=== PATIENT | male | born 1990 | race Caucasian/White ===

== ENCOUNTER 2025-06-14 10:05 | Emergency (ER) | payer OTHER, SELFPAY ==
[2025-06-14 10:06] VITALS: BP 164/94; PULSE 69; RESP 18; TEMP 36.5; O2SAT 97; BMI 22.5
--- NOTE | 2025-06-14 11:05 | RAD_ITS ---
PROCEDURE: CERV SPINE 2 OR 3 VIEWS 06/14/2025 REASON FOR EXAM: INJURY/PAIN TECHNIQUE: Procedure Code: RADSPCL Modality: DX Procedure: CERV SPINE 2 OR 3 VIEWS COMPARISON: None FINDINGS: Vertebrae: The vertebrae are unremarkable. disc spaces: Mild degree of disc space narrowing at the C6-C7 level. Alignment: Straightening of the normal cervical lordosis most likely secondary to muscular spasm. soft tissues: Unremarkable Other: There is evidence of prior open reduction internal fixation of the mandible bilaterally. RAD/Cerv Spine 2 or 3 Views IMPRESSION: Straightening of the normal cervical lordosis most likely secondary to muscular spasm. Disc space narrowing at the C6-C7 level. Disclaimer: Reading Location: [facility]
--- NOTE | 2025-06-14 11:06 | RAD_ITS ---
PROCEDURE: SHOULDER MIN 2 VIEWS 06/14/2025 REASON FOR EXAM: INJURY/PAIN TECHNIQUE: Procedure Code: RADSH Modality: DX Procedure: SHOULDER MIN 2 VIEWS Laterality: Right shoulder COMPARISON: None FINDINGS: Bones: No fracture is seen. Joints: Normal alignment of the acromioclavicular and glenohumeral joints. Soft tissues: Soft tissues are unremarkable. Other: RAD/Shoulder min 2 Views IMPRESSION: NO ACUTE FRACTURE OR DISLOCATION. Reading Location: [id number]
--- NOTE | 2025-06-14 11:06 | RAD_ITS ---
PROCEDURE: ELBOW MIN 3 VIEWS 06/14/2025 REASON FOR EXAM: INJURY/PAIN TECHNIQUE: Procedure Code: RADEL Modality: DX Procedure: ELBOW MIN 3 VIEWS Laterality: Right elbow COMPARISON: None FINDINGS: Bones: No fracture is seen. Joints: Normal alignment. Soft tissues: Soft tissues are unremarkable. Other: RAD/Elbow min 3 Views IMPRESSION: No acute abnormality is seen. Reading Location: [id number]
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
[2025-06-14 12:06] VITALS: BP 136/90; PULSE 78; RESP 16; O2SAT 99
[2025-06-14 12:54] VITALS: BP 136/90; PULSE 78; RESP 16; TEMP 36.7; O2SAT 99
== END 2025-06-14 12:55 | disposition home or self-care (01) ==
PROVIDERS: Emergency Provider Emergency Medicine; Visit Provider Emergency Medicine
DX: S16.1XXA Strain of muscle, fascia and tendon at neck level, initial encounter (principal); S50.01XA Contusion of right elbow, initial encounter; R20.2 Paresthesia of skin; F17.210 Nicotine dependence, cigarettes, uncomplicated; S46.911A Strain of unspecified muscle, fascia and tendon at shoulder and upper arm level, right arm, initial encounter; V43.52XA Car driver injured in collision with other type car in traffic accident, initial encounter
CPT/HCPCS: 72040; 73030; 73080; 99284